=== PATIENT | female | born 1940 | race Caucasian/White ===

== ENCOUNTER 2022-08-09 13:05 | Outpatient (CLI) | payer MEDICARE | END 2022-08-09 13:06 | disposition home or self-care (01) | LOC: LABBT 13:05 | PROVIDERS: ATTEND Orthopaedic Surgery | DX: Z01.818 Encounter for other preprocedural examination (principal); M17.11 Unilateral primary osteoarthritis, right knee; Z20.822 Contact with and (suspected) exposure to COVID-19 | CPT/HCPCS: 71046; 80048; 81003; 85025; 85610; 86850; 86900; 86901; 87081; 87811; 93005; 93010 ==